=== PATIENT | female | born 1975 | race Asian ===

== ENCOUNTER 2017-12-20 22:19 | Emergency (ER) | payer BC ==
[2017-12-20 22:25] VITALS: BP 146/87
--- NOTE | 2017-12-20 23:32 | ER Document Report ---
HPI - HPI Pain Level: 4 Notes: Patient is a 42-year-old female with no significant past medical history who presents to the ED complaining of right wrist pain status post injury prior to arrival. Patient states that she was ice skating when she fell on an outstretched hand. Patient states that she has had pain to her wrist since then. She did take Advil about 2-1/2 hours ago. Patient states that the pain does not radiate. She denies any drug allergies. Denies any smoking or IV drug use. No other concerns or complaints at this time. Denies any headache, fever, head injury, neck pain, URI, sore throat, chest pain, palpitations, syncope, cough, shortness of breath, wheeze, dyspnea, abdominal pain, nausea/ vomiting/diarrhea, urinary retention, dysuria, hematuria, numbness/tingling, muscle paralysis/weakness, or rash. - ROS Systems Reviewed and Negative: Yes All other systems reviewed and negative - REPRODUCTIVE LMP: 11-26-17 Past Medical History - Social History Smoking Status: Never Smoker Family History: Reviewed & Not Pertinent Vertical Provider Document - CONSTITUTIONAL Agree With Documented VS: Yes Notes: PHYSICAL EXAMINATION: GENERAL: Well-appearing, well-nourished and in no acute distress. LUNGS: Breath sounds clear to auscultation bilaterally and equal. No wheezes rales or rhonchi. HEART: Regular rate and rhythm without murmurs, rubs, gallops. Musculoskeletal: Rt wrist: + mild swelling. No obvious deformity. LROM to passive/active. Strength 4+/5. N/V intact distal. + tenderness to the distal wrist b/l to palp. Extremities: No cyanosis, clubbing, or edema b/l. Peripheral pulses 2+. Capillary refill less than 3 seconds. NEUROLOGICAL: Normal speech, normal gait. Normal sensory, motor exams PSYCH: Normal mood, normal affect. SKIN: Warm, Dry, normal turgor, no rashes or lesions noted. - INFECTION CONTROL TRAVEL OUTSIDE OF THE [place] IN LAST 30 DAYS: No Course - Re-evaluation Re-evalutation: 12/20/17 23:58 Patient is an afebrile, well-hydrated, 42-year-old female who presents the ED with right wrist pain, suspect contusion versus sprain. Vitals are acceptable. PE is otherwise unremarkable for any neurovascular compromise, obvious tendon/ ligament rupture, obvious fracture/dislocation, septic joint. X-ray was unremarkable for any acute pathology. A cockup wrist splint was placed today. Ice was also provided. Recommend conservative measures for symptoms otherwise. Recheck with your PCM in 3-5 days. Schedule an appoint with orthopedics/ physical therapy for further evaluation and management. Return to the ED with any worsening/concerning symptoms otherwise as reviewed discharge. Patient is in agreement. - Vital Signs Vital signs: Temp Pulse Resp BP Pulse Ox 97.8 F 69 14 146/87 H 100 12/20/17 22:24 12/20/17 22:24 12/20/17 22:24 12/20/17 22:24 12/20/17 22:24 Discharge - Discharge Clinical Impression: Right wrist pain Condition: Stable Disposition: HOME, SELF-CARE Additional Instructions: Rest, Ice, Compression, Elevation Use splint as directed Tylenol/ibuprofen as needed Light stretches daily Strength exercises as able Moist heat and massage may help F/u with your PCP in 3-5 days for a recheck Consider consult(s) with Orthopedics/physical therapy for ongoing/worsening symptoms Return to the ED with any worsening symptoms and/or development of fever, headache, chest pain, palpitations, syncope, shortness of breath, trouble breathing, abdominal pain, n/v/d, muscle weakness/paralysis, numbness/tingling, swelling, redness, or other worsening symptoms that are concerning to you. Referrals: SASHA RIOZ MD [Primary Care Provider] - Follow up in 3-5 days [facility] [Provider Group] - Follow up as needed
--- NOTE | 2017-12-20 23:55 | RADIOLOGY REPORT (SQ) ---
EXAM DESCRIPTION: WRIST RIGHT 3 VIEWS CLINICAL HISTORY: 42 years, Female, injury COMPARISON: None. NUMBER OF VIEWS: 3 Findings: Bones, joints, and soft tissues of WRIST RIGHT 3 VIEWS appear intact. No significant effusion. IMPRESSION: No acute findings.
[2017-12-21] MEDS ORDERED: HYDROCODONE/ACETAMINOPHEN 7.5-325 MG TABLET PO ONE (00:03)
== END 2017-12-21 00:45 | disposition home or self-care (01) ==
LOC: ER 22:19
DX: M25.531 Pain in right wrist (principal); W18.30XA Fall on same level, unspecified, initial encounter; Y93.21 Activity, ice skating
CPT/HCPCS: 99283; 73110; L3908